=== PATIENT | female | born 1990 | race Caucasian/White ===

== ENCOUNTER 2016-11-14 14:23 | Emergency (ER) | payer OTHER ==
--- NOTE | 2016-11-14 15:44 | ED CLINICAL REPORT ---
Clinical Report - Physicians/Mid Levels [facility] [address] [place] [address] 11/14/2016 14:24 Patient: LATONIA CANCINO Time Seen: 15:47 Nov 14 2016. Arrived- By private vehicle. Historian- patient. HISTORY OF PRESENT ILLNESS Chief Complaint: DENTAL PAIN. This started just prior to arrival and is still present. Pain described as mild. No nasal discharge or congestion. She has had toothache. (Dental pain worsening over the last 2 days. Denies and difficulty swallowing, right side going into the right facial aspect.). REVIEW OF SYSTEMS No fever, cough, difficulty breathing, diarrhea or abdominal pain. No headache, joint pain or enlarged lymph nodes. All systems otherwise negative, except as recorded above. SOCIAL HISTORY No drug use. ADDITIONAL NOTES The nursing notes have been reviewed. PHYSICAL EXAM Vital Signs: 11/14/2016 15:38 BP: 111/71. HR: 66. RR: 12. O2 saturation: 100%. Temp: 98.2 F. Pain level now: 10. Appearance: Alert. Head: Normal external inspection. ENT: Nose normal. Pharynx normal. Uvula midline. No dental decay or tenderness or trismus. Neck: Trachea midline. No adenopathy. No thyromegaly or meningeal signs. CVS: Normal heart rate and rhythm. Heart sounds normal. Respiratory: No respiratory distress. Breath sounds normal. Extremities: Extremities nontender. Neuro: Oriented X 3. PROGRESS AND PROCEDURES Course of Care: Uvula midline, no facial swelling. With fracture of the right premolar tooth, lower aspect, as well as some erythema of the gumline on the right aspect. No palpable mass or abscess. Patient is stable. Patient/family counseled. Disposition: Discharged. CLINICAL IMPRESSION Moderate dental pain. INSTRUCTIONS Drink plenty of fluids. Prescription Medications: Cleocin 150 mg: take 1 capsule orally every 8 hours for 10 days. No refill. Substitution is permissible. OTC Medications: Take OTC medications according to label instructions. Available over the counter. Acetaminophen (available over the counter): take according to label instructions. Motrin (available over the counter): take according to label instructions. Follow-up: Follow up with a specialist. (Electronically signed by Tanna Arriaza P.A.-C 11/14/2016 15:54)
--- NOTE | 2016-11-14 15:44 | ED NURSING NOTES ---
Clinical Report - Nurses [facility] [address] [place] [address] 11/14/2016 14:24 Patient: LATONIA CANCINO TRIAGE Triage time 1539 PM. Acuity: LEVEL 5. Chief Complaint: RIGHT UPPER and LOWER TOOTHACHE and CHIPPED TOOTH and JAW PAIN and SWELLING OF JAW / FACE. Alert. No acute distress. --15:45 Marie Lu R.N. 15:38 11/14/16. BP: 111/71. HR: 66. RR: 12. O2 saturation: 100% on room air. Temp: 98.2 F (oral). Pain level now: 06/13. --15:45 Marie Lu R.N. Weight: 72.5 kg stated. Height/Length: 65 inches Per Patient. BMI: 26.6. --15:44 Marie Lu R.N. Medications Albuterol Sulfate HFA Inhalation. Levothyroxine Sodium Oral, daily. --15:40 Marie Lu R.N. Medication/allergy information source: the patient. --15:45 Marie Lu R.N. Allergies Cephalexin. Codeine. Sulfa Antibiotics. --15:40 Marie Lu R.N. History Arrived by private vehicle, and accompanied by friend. ( PT states having lots of "tooth problems" fear of dentist, has been having pain on the right lower and upper teeth, few days ago, afraid has an infection). The patient has no dental appointment scheduled. She has had fever. She has had facial pain (1 weeks). She has had a toothache. 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 PAST MEDICAL HX: Immunizations: up-to-date. Last normal menstrual period- Nov 08. Sexual history - sexually active. Uses contraception intermittently. Uses condoms. SOCIAL HX: No infectious disease exposure. ABUSE ASSESSMENT: No report of abuse. FALL RISK ASSESSMENT: Fall risk assessment completed. No fall risk identified. NUTRITIONAL RISK ASSESSMENT: The nutritional risk assessment revealed no deficiencies. FUNCTIONAL ASSESSMENT: Functional assessment: no impairments noted. LEARNING NEEDS ASSESSMENT: The learning needs assessment revealed no barriers. SKIN INTEGRITY ASSESSMENT: Skin integrity risk assessment completed. No skin integrity risk identified. --15:45 Marie Lu R.N. PAST MEDICAL HX: Dental caries. SOCIAL HX: Former smoker. No alcohol use or drug use. SELF HARM ASSESSMENT: A self harm assessment was performed. The patient answered "no" to the question "Do you have thoughts of harming or killing yourself?" and "Have you recently had thoughts about harming or killing others?". --15:45 Marie Lu R.N. PROBLEMS: Diarrhea. Vomiting. Abdominal Pain. Vaginal Bleeding. 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 Dental Pain. Dental Caries. Nephrolithiasis. Ureterolithiasis. Care. . Spastic Colon. Hypothyroidism. --15:40 Marie Lu R.N. UTI - Urinary Tract Infection [RuleOut]. Ovarian Cyst [RuleOut]. --15:40 Marie Lu R.N. ADDITIONAL SURGERIES: Appendectomy. LEEP procedure. --15:40 Marie Lu R.N. Interventions ID band on patient. --15:45 Marie Lu R.N. PHYSICAL ASSESSMENT Ambulatory to room. GENERAL / NEURO / PSYCH: Alert. Oriented X 4. Appears in no acute distress. HEENT: Voice within normal limits. No nasal discharge. No change in voice. Dental decay. No facial swelling or sinus tenderness present. Mucous membranes are pink. SKIN: Skin is warm and dry. --15:46 Marie Lu R.N. NURSING PROGRESS NOTES The initial plan of care for this patient has been created This plan of care was discussed with the patient. Reassurance given. Two patient identifiers checked. Call light placed in reach. Side rails up. Brakes of bed on. --15:46 Marie Lu R.N. DISPOSITION / DISCHARGE Departure time: 1607 PM. Condition at departure: unchanged and stable. The goals identified in the patient's plan of care were met. No learning barriers present. Discharge instructions provided and reviewed with the patient. Reviewed medication(s) side effects, precautions, dosing and course information. Prescription(s) given to the patient. Reviewed referral to a dentist for followup. Patient verbalized understanding. Written instructions provided in Chinese. No diet instructions or activity restrictions. The patient was discharged by the physician assistant front end manager. She was unaccompanied at time of discharge. She left the Emergency Department ambulatory and via private vehicle. Patient driving. FALL RISK ASSESSMENT: Fall risk assessment completed. No fall risk identified. --16:06 Marie Lu R.N. 16:04 11/14/16. BP: 109/69 (regular adult cuff) taken on the left arm, via an automated monitor, while sitting. HR: 62. RR: 12. O2 saturation: 100%. Temp: 98.3 F (oral). Pain level now: 06/13. --16:06 Marie Lu R.N. Locked/Released at 11/14/2016 20:26 by Marie Lu R.N.
--- NOTE | 2016-11-14 15:44 | ED NURSING NOTES ---
Clinical Report - Nurses [facility] [address] [place] [address] 11/14/2016 14:24 Patient: LATONIA CANCINO TRIAGE Triage time 1539 PM. Acuity: LEVEL 5. Chief Complaint: RIGHT UPPER and LOWER TOOTHACHE and CHIPPED TOOTH and JAW PAIN and SWELLING OF JAW / FACE. Alert. No acute distress. --15:45 Marie Lu R.N. 15:38 11/14/16. BP: 111/71. HR: 66. RR: 12. O2 saturation: 100% on room air. Temp: 98.2 F (oral). Pain level now: 06/13. --15:45 Marie Lu R.N. Weight: 72.5 kg stated. Height/Length: 65 inches Per Patient. BMI: 26.6. --15:44 Marie Lu R.N. Medications Albuterol Sulfate HFA Inhalation. Levothyroxine Sodium Oral, daily. --15:40 Marie Lu R.N. Medication/allergy information source: the patient. --15:45 Marie Lu R.N. Allergies Cephalexin. Codeine. Sulfa Antibiotics. --15:40 Marie Lu R.N. History Arrived by private vehicle, and accompanied by friend. ( PT states having lots of "tooth problems" fear of dentist, has been having pain on the right lower and upper teeth, few days ago, afraid has an infection). The patient has no dental appointment scheduled. She has had fever. She has had facial pain (1 weeks). She has had a toothache. 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 PAST MEDICAL HX: Immunizations: up-to-date. Last normal menstrual period- Nov 08. Sexual history - sexually active. Uses contraception intermittently. Uses condoms. SOCIAL HX: No infectious disease exposure. ABUSE ASSESSMENT: No report of abuse. FALL RISK ASSESSMENT: Fall risk assessment completed. No fall risk identified. NUTRITIONAL RISK ASSESSMENT: The nutritional risk assessment revealed no deficiencies. FUNCTIONAL ASSESSMENT: Functional assessment: no impairments noted. LEARNING NEEDS ASSESSMENT: The learning needs assessment revealed no barriers. SKIN INTEGRITY ASSESSMENT: Skin integrity risk assessment completed. No skin integrity risk identified. --15:45 Marie Lu R.N. PAST MEDICAL HX: Dental caries. SOCIAL HX: Former smoker. No alcohol use or drug use. SELF HARM ASSESSMENT: A self harm assessment was performed. The patient answered "no" to the question "Do you have thoughts of harming or killing yourself?" and "Have you recently had thoughts about harming or killing others?". --15:45 Marie Lu R.N. PROBLEMS: Diarrhea. Vomiting. Abdominal Pain. Vaginal Bleeding. 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 Dental Pain. Dental Caries. Nephrolithiasis. Ureterolithiasis. Care. . Spastic Colon. Hypothyroidism. --15:40 Marie Lu R.N. UTI - Urinary Tract Infection [RuleOut]. Ovarian Cyst [RuleOut]. --15:40 Marie Lu R.N. ADDITIONAL SURGERIES: Appendectomy. LEEP procedure. --15:40 Marie Lu R.N. Interventions ID band on patient. --15:45 Marie Lu R.N. PHYSICAL ASSESSMENT Ambulatory to room. GENERAL / NEURO / PSYCH: Alert. Oriented X 4. Appears in no acute distress. HEENT: Voice within normal limits. No nasal discharge. No change in voice. Dental decay. No facial swelling or sinus tenderness present. Mucous membranes are pink. SKIN: Skin is warm and dry. --15:46 Marie Lu R.N. NURSING PROGRESS NOTES The initial plan of care for this patient has been created This plan of care was discussed with the patient. Reassurance given. Two patient identifiers checked. Call light placed in reach. Side rails up. Brakes of bed on. --15:46 Marie Lu R.N. DISPOSITION / DISCHARGE Departure time: 1607 PM. Condition at departure: unchanged and stable. The goals identified in the patient's plan of care were met. No learning barriers present. Discharge instructions provided and reviewed with the patient. Reviewed medication(s) side effects, precautions, dosing and course information. Prescription(s) given to the patient. Reviewed referral to a dentist for followup. Patient verbalized understanding. Written instructions provided in Chinese. No diet instructions or activity restrictions. The patient was discharged by the physician staff assistant. She was unaccompanied at time of discharge. She left the Emergency Department ambulatory and via private vehicle. Patient driving. FALL RISK ASSESSMENT: Fall risk assessment completed. No fall risk identified. --16:06 Marie Lu R.N. 16:04 11/14/16. BP: 109/69 (regular adult cuff) taken on the left arm, via an automated monitor, while sitting. HR: 62. RR: 12. O2 saturation: 100%. Temp: 98.3 F (oral). Pain level now: 06/13. --16:06 Marie Lu R.N. Locked/Released at 11/14/2016 20:26 by Marie Lu R.N.
--- NOTE | 2016-11-14 15:44 | ED CLINICAL REPORT ---
Clinical Report - Physicians/Mid Levels [facility] [address] [place] [address] 11/14/2016 14:24 Patient: LATONIA CANCINO Time Seen: 15:47 Nov 14 2016. Arrived- By private vehicle. Historian- patient. HISTORY OF PRESENT ILLNESS Chief Complaint: DENTAL PAIN. This started just prior to arrival and is still present. Pain described as mild. No nasal discharge or congestion. She has had toothache. (Dental pain worsening over the last 2 days. Denies and difficulty swallowing, right side going into the right facial aspect.). REVIEW OF SYSTEMS No fever, cough, difficulty breathing, diarrhea or abdominal pain. No headache, joint pain or enlarged lymph nodes. All systems otherwise negative, except as recorded above. SOCIAL HISTORY No drug use. ADDITIONAL NOTES The nursing notes have been reviewed. PHYSICAL EXAM Vital Signs: 11/14/2016 15:38 BP: 111/71. HR: 66. RR: 12. O2 saturation: 100%. Temp: 98.2 F. Pain level now: 10. Appearance: Alert. Head: Normal external inspection. ENT: Nose normal. Pharynx normal. Uvula midline. No dental decay or tenderness or trismus. Neck: Trachea midline. No adenopathy. No thyromegaly or meningeal signs. CVS: Normal heart rate and rhythm. Heart sounds normal. Respiratory: No respiratory distress. Breath sounds normal. Extremities: Extremities nontender. Neuro: Oriented X 3. PROGRESS AND PROCEDURES Course of Care: Uvula midline, no facial swelling. With fracture of the right premolar tooth, lower aspect, as well as some erythema of the gumline on the right aspect. No palpable mass or abscess. Patient is stable. Patient/family counseled. Disposition: Discharged. CLINICAL IMPRESSION Moderate dental pain. INSTRUCTIONS Drink plenty of fluids. Prescription Medications: Cleocin 150 mg: take 1 capsule orally every 8 hours for 10 days. No refill. Substitution is permissible. OTC Medications: Take OTC medications according to label instructions. Available over the counter. Acetaminophen (available over the counter): take according to label instructions. Motrin (available over the counter): take according to label instructions. Follow-up: Follow up with a specialist. (Electronically signed by Tanna Arriaza P.A.-C 11/14/2016 15:54)
--- NOTE | 2016-11-14 20:27 | ED DISCHARGE INSTRUCTIONS ---
Patient: LATONIA CANCINO General Instructions [facility] VisitID: [id number] [place] [address] 26y, F Registration Date/Time: 11/14/2016 Moderate dental pain. INSTRUCTIONS Drink plenty of fluids. Prescription Medications: Cleocin 150 mg: take 1 capsule orally every 8 hours for 10 days. No refill. Substitution is permissible. OTC Medications: Take OTC medications according to label instructions. Available over the counter. Acetaminophen (available over the counter): take according to label instructions. Motrin (available over the counter): take according to label instructions. Follow-up: Follow up with a specialist. ADDITIONAL INFORMATION Dental Pain A crack or cavity in the tooth, which exposes the sensitive inner area of the tooth can cause tooth pain. An infection in the gum or the root of the tooth can cause pain and swelling. The pain is often made worse by drinking hot or cold fluids, or biting on hard foods. Pain may spread from the tooth to the ear or jaw on the same side. Home Care: Avoid hot and cold foods and liquids since your tooth may be sensitive to temperature changes. If your tooth is chipped or cracked, or if there is a large open cavity, apply OIL OF CLOVES (available dvzc-rut-qcysrja in drug stores) directly to the tooth to reduce pain. Some pharmacies carry an hxmg-rks-hzwbytr "toothache kit." This contains a paste, which can be applied over the exposed tooth to decrease sensitivity. A cold pack on your jaw over the sore area may help reduce pain. You may use acetaminophen (Tylenol) or ibuprofen (Motrin, Advil) to control pain, unless another medicine was prescribed. [ NOTE: If you have chronic liver or kidney disease or ever had a stomach ulcer or GI bleeding, talk with your doctor before using these medicines.] If you have signs of an infection, an antibiotic will be given. Take it as directed. Follow-Up as directed with a dentist. Your pain may go away with the treatment given. However, only a dentist can fully evaluate and treat the cause and prevent the pain from coming back again. TOOTHACHE IS A SIGN OF DISEASE IN YOUR TOOTH AND SHOULD BE EXAMINED AND TREATED BY A DENTIST. Get Prompt Medical Attention if any of the following occur: Your face becomes swollen or red Pain worsens or spreads to the neck Fever over 100.4 F (38.0 C) Unusual drowsiness; headache or stiff neck; weakness or fainting Pus drains from the tooth Difficulty swallowing or breathing Dental Abscess A dental abscess is an infection of the tooth socket. It often starts with a crack or cavity in the tooth. A pocket of pus forms between the tooth and the bone. The infection causes pain and swelling of the gum, cheek or jaw. The pain is often made worse by drinking hot or cold fluids, or biting on hard foods. Pain may be felt in the facial sinus or in the ear. A severe infection can interfere with swallowing and breathing. In the emergency department or clinic, you will be started on an antibiotic. However, final treatment requires drainage of the pus. This can be done by removing the tooth or performing a root canal. A root canal is done by an oral surgeon and involves drilling an opening in the tooth to drain the pus. After the infection has healed, a crown is placed over the tooth. Home care The following guidelines will help you care for your abscess at home: Avoid hot and cold foods and liquids since your tooth may be sensitive to temperature changes. If your tooth is chipped or cracked, or if there is a large open cavity, applyoil of cloves(available nhha-xdm-zbpyzzr in drug stores) directly to the tooth to reduce pain. Some pharmacies carry an mynm-vkb-zlrehby "toothache kit". This contains oil of cloves and a paste, which can be applied over the exposed tooth to decrease sensitivity. Apply an ice pack (ice cubes in a plastic bag, wrapped in a towel) over the injured area for 20 minutes every 12 hours the first day for pain relief. Continue this 34 times a day until the pain and swelling goes away. You may use acetaminophen or ibuprofen to control pain, unless another medicine was prescribed. If you have chronic liver or kidney disease or ever had a stomach ulcer or GI bleeding, talk with your doctor before using these medicines. An antibiotic will be prescribed. Take it as directed until completed, even if you are feeling better sooner. Follow-up care Follow up as directed with a dentist or oral surgeon. Even though your pain may improve with the treatment given today, only a dentist or oral surgeon can provide full treatment for this problem. When to seek medical care Get prompt medical attention or contact your doctor if any of the following occur: Your face or eyelid becomes swollen or red Pain worsens or spreads to the neck Fever over 100.4F (38.0C) Unusual drowsiness; headache or stiff neck; weakness, or fainting Pus drains from the gum or tooth Difficulty talking, swallowing or breathing Unable to open your mouth wide Clindamycin Hydrochloride Oral capsule What is this medicine? CLINDAMYCIN (MADELYN Swan) is a lincosamide antibiotic. It is used to treat certain kinds of bacterial infections. It will not work for colds, flu, or other viral infections. How should I use this medicine? Take this medicine by mouth with a full glass of water. Follow the directions on the prescription label. You can take this medicine with food or on an empty stomach. If the medicine upsets your stomach, take it with food. Take your medicine at regular intervals. Do not take your medicine more often than directed. Take all of your medicine as directed even if you think your are better. Do not skip doses or stop your medicine early. Talk to your slasher operator regarding the use of this medicine in children. Special care may be needed. What side effects may I notice from receiving this medicine? Side effects that you should report to your doctor or health patient care specialist as soon as possible: allergic reactions like skin rash, itching or hives, swelling of the face, lips, or tongue dark urine pain on swallowing redness, blistering, peeling or loosening of the skin, including inside the mouth unusual bleeding or bruising unusually weak or tired yellowing of eyes or skin Side effects that usually do not require medical attention (report to your doctor or health patient care specialist if they continue or are bothersome): diarrhea itching in the rectal or genital area joint pain nausea, vomiting stomach pain What may interact with this medicine? chloramphenicol erythromycin kaolin products What if I miss a dose? If you miss a dose, take it as soon as you can. If it is almost time for your next dose, take only that dose. Do not take double or extra doses. Where should I keep my medicine? Keep out of the reach of children. Store at room temperature between 20 and 25 degrees C (68 and 77 degrees F). Throw away any unused medicine after the expiration date. What should I tell my health care provider before I take this medicine? They need to know if you have any of these conditions: kidney disease liver disease stomach problems like colitis an unusual or allergic reaction to clindamycin, lincomycin, or other medicines, foods, dyes like tartrazine or preservatives or trying to get breast-feeding What should I watch for while using this medicine? Tell your doctor or healthcare professional if your symptoms do not start to get better or if they get worse. Do not treat diarrhea with over the counter products. Contact your doctor if you have diarrhea that lasts more than 2 days or if it is severe and watery. You have been given the following additional information: Dental Pain Tooth Abscess Clindamycin Hydrochloride Oral capsule (Electronically signed by Tanna Arriaza P.A.-C 11/14/2016 15:54)
--- NOTE | 2016-11-14 20:27 | ED MED RECONCILIATION SUMMARY ---
Patient: LATONIA CANCINO Medication Reconciliation Report [facility] VisitID: [id number] [address] [place] [address] 26y, F Registration Date/Time: 11/14/2016 Weight: 72.5 kg Height/Length: 65 in. BMI: 26.6 ALLERGIES: Cephalexin, Codeine, Sulfa Antibiotics The patient's Home Medications are listed below: THE FOLLOWING MEDICATIONS NEED TO BE RECONCILED: Albuterol Sulfate HFA Inhalation Levothyroxine Sodium Oral, daily The source(s) of the original Home Medication information: patient The following Medications were given to the patient in the Emergency Department: None. The following Medications were prescribed to the patient: Take OTC medications according to label instructions. Available over the counter. -- Tanna Arriaza, P.A.-C Acetaminophen (available over the counter): take according to label instructions. -- Tanna Arriaza, P.A.-C Motrin (available over the counter): take according to label instructions. -- Tanna Arriaza, P.A.-C Cleocin 150 mg: take 1 capsule orally every 8 hours for 10 days. No refill. Substitution is permissible. -- Tanna Arriaza, P.A.-C
--- NOTE | 2016-11-14 20:27 | ED DISCHARGE INSTRUCTIONS ---
Patient: LATONIA CANCINO General Instructions [facility] VisitID: [id number] [place] [address] 26y, F Registration Date/Time: 11/14/2016 Moderate dental pain. INSTRUCTIONS Drink plenty of fluids. Prescription Medications: Cleocin 150 mg: take 1 capsule orally every 8 hours for 10 days. No refill. Substitution is permissible. OTC Medications: Take OTC medications according to label instructions. Available over the counter. Acetaminophen (available over the counter): take according to label instructions. Motrin (available over the counter): take according to label instructions. Follow-up: Follow up with a specialist. ADDITIONAL INFORMATION Dental Pain A crack or cavity in the tooth, which exposes the sensitive inner area of the tooth can cause tooth pain. An infection in the gum or the root of the tooth can cause pain and swelling. The pain is often made worse by drinking hot or cold fluids, or biting on hard foods. Pain may spread from the tooth to the ear or jaw on the same side. Home Care: Avoid hot and cold foods and liquids since your tooth may be sensitive to temperature changes. If your tooth is chipped or cracked, or if there is a large open cavity, apply OIL OF CLOVES (available ahxf-led-tiqbkhj in drug stores) directly to the tooth to reduce pain. Some pharmacies carry an wziz-emh-pofxnle "toothache kit." This contains a paste, which can be applied over the exposed tooth to decrease sensitivity. A cold pack on your jaw over the sore area may help reduce pain. You may use acetaminophen (Tylenol) or ibuprofen (Motrin, Advil) to control pain, unless another medicine was prescribed. [ NOTE: If you have chronic liver or kidney disease or ever had a stomach ulcer or GI bleeding, talk with your doctor before using these medicines.] If you have signs of an infection, an antibiotic will be given. Take it as directed. Follow-Up as directed with a dentist. Your pain may go away with the treatment given. However, only a dentist can fully evaluate and treat the cause and prevent the pain from coming back again. TOOTHACHE IS A SIGN OF DISEASE IN YOUR TOOTH AND SHOULD BE EXAMINED AND TREATED BY A DENTIST. Get Prompt Medical Attention if any of the following occur: Your face becomes swollen or red Pain worsens or spreads to the neck Fever over 100.4 F (38.0 C) Unusual drowsiness; headache or stiff neck; weakness or fainting Pus drains from the tooth Difficulty swallowing or breathing Dental Abscess A dental abscess is an infection of the tooth socket. It often starts with a crack or cavity in the tooth. A pocket of pus forms between the tooth and the bone. The infection causes pain and swelling of the gum, cheek or jaw. The pain is often made worse by drinking hot or cold fluids, or biting on hard foods. Pain may be felt in the facial sinus or in the ear. A severe infection can interfere with swallowing and breathing. In the emergency department or clinic, you will be started on an antibiotic. However, final treatment requires drainage of the pus. This can be done by removing the tooth or performing a root canal. A root canal is done by an oral surgeon and involves drilling an opening in the tooth to drain the pus. After the infection has healed, a crown is placed over the tooth. Home care The following guidelines will help you care for your abscess at home: Avoid hot and cold foods and liquids since your tooth may be sensitive to temperature changes. If your tooth is chipped or cracked, or if there is a large open cavity, applyoil of cloves(available hqud-pjp-rfothvl in drug stores) directly to the tooth to reduce pain. Some pharmacies carry an xsrr-etn-tfkrqff "toothache kit". This contains oil of cloves and a paste, which can be applied over the exposed tooth to decrease sensitivity. Apply an ice pack (ice cubes in a plastic bag, wrapped in a towel) over the injured area for 20 minutes every 12 hours the first day for pain relief. Continue this 34 times a day until the pain and swelling goes away. You may use acetaminophen or ibuprofen to control pain, unless another medicine was prescribed. If you have chronic liver or kidney disease or ever had a stomach ulcer or GI bleeding, talk with your doctor before using these medicines. An antibiotic will be prescribed. Take it as directed until completed, even if you are feeling better sooner. Follow-up care Follow up as directed with a dentist or oral surgeon. Even though your pain may improve with the treatment given today, only a dentist or oral surgeon can provide full treatment for this problem. When to seek medical care Get prompt medical attention or contact your doctor if any of the following occur: Your face or eyelid becomes swollen or red Pain worsens or spreads to the neck Fever over 100.4F (38.0C) Unusual drowsiness; headache or stiff neck; weakness, or fainting Pus drains from the gum or tooth Difficulty talking, swallowing or breathing Unable to open your mouth wide Clindamycin Hydrochloride Oral capsule What is this medicine? CLINDAMYCIN (MADELYN Swan) is a lincosamide antibiotic. It is used to treat certain kinds of bacterial infections. It will not work for colds, flu, or other viral infections. How should I use this medicine? Take this medicine by mouth with a full glass of water. Follow the directions on the prescription label. You can take this medicine with food or on an empty stomach. If the medicine upsets your stomach, take it with food. Take your medicine at regular intervals. Do not take your medicine more often than directed. Take all of your medicine as directed even if you think your are better. Do not skip doses or stop your medicine early. Talk to your outpatient admitting clerk regarding the use of this medicine in children. Special care may be needed. What side effects may I notice from receiving this medicine? Side effects that you should report to your doctor or health career guidance technician as soon as possible: allergic reactions like skin rash, itching or hives, swelling of the face, lips, or tongue dark urine pain on swallowing redness, blistering, peeling or loosening of the skin, including inside the mouth unusual bleeding or bruising unusually weak or tired yellowing of eyes or skin Side effects that usually do not require medical attention (report to your doctor or health career guidance technician if they continue or are bothersome): diarrhea itching in the rectal or genital area joint pain nausea, vomiting stomach pain What may interact with this medicine? chloramphenicol erythromycin kaolin products What if I miss a dose? If you miss a dose, take it as soon as you can. If it is almost time for your next dose, take only that dose. Do not take double or extra doses. Where should I keep my medicine? Keep out of the reach of children. Store at room temperature between 20 and 25 degrees C (68 and 77 degrees F). Throw away any unused medicine after the expiration date. What should I tell my health care provider before I take this medicine? They need to know if you have any of these conditions: kidney disease liver disease stomach problems like colitis an unusual or allergic reaction to clindamycin, lincomycin, or other medicines, foods, dyes like tartrazine or preservatives or trying to get breast-feeding What should I watch for while using this medicine? Tell your doctor or healthcare professional if your symptoms do not start to get better or if they get worse. Do not treat diarrhea with over the counter products. Contact your doctor if you have diarrhea that lasts more than 2 days or if it is severe and watery. You have been given the following additional information: Dental Pain Tooth Abscess Clindamycin Hydrochloride Oral capsule (Electronically signed by Tanna Arriaza P.A.-C 11/14/2016 15:54)
--- NOTE | 2016-11-14 20:27 | ED MED RECONCILIATION SUMMARY ---
Patient: LATONIA CANCINO Medication Reconciliation Report [facility] VisitID: [id number] [address] [place] [address] 26y, F Registration Date/Time: 11/14/2016 Weight: 72.5 kg Height/Length: 65 in. BMI: 26.6 ALLERGIES: Cephalexin, Codeine, Sulfa Antibiotics The patient's Home Medications are listed below: THE FOLLOWING MEDICATIONS NEED TO BE RECONCILED: Albuterol Sulfate HFA Inhalation Levothyroxine Sodium Oral, daily The source(s) of the original Home Medication information: patient The following Medications were given to the patient in the Emergency Department: None. The following Medications were prescribed to the patient: Take OTC medications according to label instructions. Available over the counter. -- Tanna Arriaza, P.A.-C Acetaminophen (available over the counter): take according to label instructions. -- Tanna Arriaza, P.A.-C Motrin (available over the counter): take according to label instructions. -- Tanna Arriaza, P.A.-C Cleocin 150 mg: take 1 capsule orally every 8 hours for 10 days. No refill. Substitution is permissible. -- Tanna Arriaza, P.A.-C
--- NOTE | 2016-11-14 20:27 | ED MAR SUMMARY ---
..... Medication Administration Record [facility] [address] [place] [place], [place] [id number] Patient: LATONIA CANCINO Visit ID: [id number] 26y, F Weight: 72.5 kg Height/Length: 65 in BMI: 26.6 ALLERGIES: Cephalexin, Codeine, Sulfa Antibiotics
--- NOTE | 2016-11-14 20:27 | ED MAR SUMMARY ---
..... Medication Administration Record [facility] [address] [place], [place] [id number] Patient: LATONIA CANCINO Visit ID: [id number] 26y, F Weight: 72.5 kg Height/Length: 65 in BMI: 26.6 ALLERGIES: Cephalexin, Codeine, Sulfa Antibiotics
== END 2016-11-14 16:07 | disposition home or self-care (01) ==
LOC: ED SRH 14:23
DX: K08.89 Other specified disorders of teeth and supporting structures (principal); Z88.5 Allergy status to narcotic agent; Z88.1 Allergy status to other antibiotic agents